=== PATIENT | male | born 1975 | race Caucasian/White ===

== ENCOUNTER 2016-09-16 15:40 | Emergency (ER) | payer BC ==
[2016-09-16 18:59] LABS: Hematocrit 49 % (42-52); Hemoglobin 16.5 g/dl (14.0-18.0); Mean Corpuscular HGB Conc 34 g/dl (31-36); Mean Corpuscular Hemoglobin 29 pg (27-31); Mean Corpuscular Volume 85 fL (80-94); Mean Platelet Volume 9 um3 (7.4-10.4); Red Blood Count 5.74 10^6/ul (4.0-5.4); Red Cell Distribution Width 13 % (10.5-15); White Blood Count 9.5 10^3/ul (3.5-10.8)
[2016-09-16 19:15] LABS: Albumin 4.4 g/dL (3.2-5.2); BUN/Creatinine Ratio 13.5 (8-20); Calcium 9.2 mg/dL (8.6-10.3); EGFR African American 101.7 (>60); EGFR Non-African American 79.1 (>60); Globulin 3.2 g/dL (2-4); Total Bilirubin 0.4 mg/dL (0.2-1.0); Total Protein 7.6 g/dL (6.4-8.9)
--- NOTE | 2016-09-16 20:32 | ED ---
Liss Hoang Thomas, scribed for Kemar Bloom MD on 09/16/16 at 1933 . Abdominal Pain/Male - HPI Summary HPI Summary: Pt is a 41 y/o M presenting to the ED c/o "pressure" in his lower back. He denies pain in his lower back and only confirms a sensation of "pressure". Pt additionally c/o abd bloating. Denies N/V and abd pain. A month ago, the pt had Sx of abd pain and went to his PCP, who diagnosed him with diverticulitis and prescribed him Ciprofloxacin and Flagyl. His Sx improved and he felt better. He had no imaging at that time. Two weeks ago, the pt noticed BRB when wiping and hematuria as well. He was diagnosed with hemorrhoids and prescribed a cream. Three days ago, the pt went to a GI doc who is trying to schedule a colonoscopy but the first available appointment is in October. This AM the pt developed a "pressure" sensation in his lower back and has defecated 4-5 times today, the last instance with BRB, prompting an ED visit. PMHx: diverticulitis, hemorrhoids. - History of Current Complaint Chief Complaint: EDAbdPain Stated Complaint: LOWER BACK PAIN,BLOOD IN STOOL Time Seen by Provider: 09/16/16 19:16 Hx Obtained From: Patient Onset/Duration: Sudden Onset - this AM, Still Present Timing: Constant Pain Intensity: 0 Pain Scale Used: 0-10 Numeric - not a pain but a "pressure" Location: Other - lower back Character: Other: - "pressure" Aggravating Factor(s): Nothing Alleviating Factor(s): Nothing Associated Signs And Symptoms: Positive: Blood in Stool - BRB when wiping, Other - POS: hematuria, NEG: abd pain (in the ED, but had abd pain a month ago) . Negative: Back Pain, Nausea, Vomiting - Allergies/Home Medications Allergies/Adverse Reactions: Allergies Allergy/AdvReac Type Severity Reaction Status Date / Time No Known Allergies Allergy Verified 07/30/15 22:46 PMH/Surg Hx/FS Hx/Imm Hx Previously Healthy: No Respiratory History: Denies: Hx Chronic Obstructive Pulmonary Disease (COPD) GI History: Reports: Hx Diverticulosis, Other GI Disorders - POS: diverticulitis , hemorrhoids History: Denies: Hx Kidney Stones Sensory History: Denies: Hx Legally Blind EENT History: Denies: Hx Deafness - Surgical History Surgery Procedure, Year, and Place: wisdom teeth; cholecystectomy Infectious Disease History: No Infectious Disease History: Reports: Hx Shingles - 2009 Denies: Hx Clostridium Difficile, Hx Hepatitis, Hx Human Immunodeficiency Virus (HIV), Hx of Known/Suspected MRSA, Hx Tuberculosis, Hx Known/Suspected VRE , Hx Known/Suspected VRSA, History Other Infectious Disease, Traveled Outside the [place] in Last 30 Days - Family History Known Family History: Positive: Other - NEG: chronic GI disease - Social History Alcohol Use: Rare Hx Substance Use: No Substance Use Type: Reports: None Hx Tobacco Use: No Smoking Status (MU): Never Smoked Tobacco Review of Systems Constitutional: Negative Eyes: Negative ENT: Negative Cardiovascular: Negative Respiratory: Negative Positive: Other - POS: abd bloating, BRB when wiping. Negative: Abdominal Pain , Vomiting, Nausea Positive: hematuria - two weeks ago Positive: Other - POS: "pressure" sensation in lower back; NEG: pain in lower back Skin: Negative Neurological: Negative Psychological: Normal All Other Systems Reviewed And Are Negative: Yes Physical Exam Triage Information Reviewed: Yes Vital Signs On Initial Exam: Initial Vitals Temp Pulse Resp BP Pulse Ox 97.0 F 98 20 177/107 97 09/16/16 15:45 09/16/16 15:45 09/16/16 15:45 09/16/16 15:45 09/16/16 15:45 Vital Signs Reviewed: Yes Appearance: Positive: Well-Appearing, No Pain Distress Skin: Positive: Warm Head/Face: Positive: Normal Head/Face Inspection Eyes: Positive: SIMBA ENT: Positive: Hearing grossly normal Neck: Positive: Supple, Nontender Respiratory/Lung Sounds: Positive: Breath Sounds Present Cardiovascular: Positive: RRR Abdomen Description: Positive: Nontender, No Organomegaly, Soft Bowel Sounds: Positive: Present Musculoskeletal: Positive: Strength/ROM Intact Neurological: Positive: Alert, Oriented to Person Place, Time Psychiatric: Positive: Affect/Mood Appropriate Diagnostics - Vital Signs Vital Signs Temp Pulse Resp BP Pulse Ox 09/16/16 18:26 98.8 F 74 17 113/74 98 09/16/16 15:47 97.8 F 97 20 177/107 96 09/16/16 15:45 97.0 F 98 20 177/107 97 - Laboratory Lab Results: Lab Results 09/16/16 09/16/16 09/16/16 Range/Units 18:56 18:56 18:56 WBC 9.5 (3.5-10.8) 10^3/ul RBC 5.74 H (4.0-5.4) 10^6/ul Hgb 16.5 (14.0-18.0) g/dl Hct 49 (42-52) % MCV 85 (80-94) fL MCH 29 (27-31) pg MCHC 34 (31-36) g/dl RDW 13 (10.5-15) % Plt Count 262 (150-450) 10^3/ul MPV 9 (7.4-10.4) um3 Neut % (Auto) 55.1 (38-83) % Lymph % (Auto) 30.3 (25-47) % Wilson % (Auto) 10.5 H (1-9) % Eos % (Auto) 3.1 (0-6) % Baso % (Auto) 1.0 (0-2) % Absolute Neuts (auto) 5.2 (1.5-7.7) 10^3/ul Absolute Lymphs (auto) 2.9 (1.0-4.8) 10^3/ul Absolute Monos (auto) 1.0 H (0-0.8) 10^3/ul Absolute Eos (auto) 0.3 (0-0.6) 10^3/ul Absolute Basos (auto) 0.1 (0-0.2) 10^3/ul Absolute Nucleated RBC 0.01 10^3/ul Nucleated RBC % 0.1 INR (Anticoag Therapy) 0.92 (0.89-1.11) APTT 31.5 (26.0-36.3) seconds Sodium 136 (133-145) mmol/L Potassium 4.0 (3.5-5.0) mmol/L Chloride 102 (101-111) mmol/L Carbon Dioxide 29 (22-32) mmol/L Anion Gap 5 (2-11) mmol/L BUN 14 (6-24) mg/dL Creatinine 1.04 (0.67-1.17) mg/dL Est GFR ( Amer) 101.7 (>60) Est GFR (Non-Af Amer) 79.1 (>60) BUN/Creatinine Ratio 13.5 (8-20) Glucose 86 (70-100) mg/dL Calcium 9.2 (8.6-10.3) mg/dL Total Bilirubin 0.40 (0.2-1.0) mg/dL AST 23 (13-39) U/L ALT 45 (7-52) U/L Alkaline Phosphatase 94 (34-104) U/L Total Protein 7.6 (6.4-8.9) g/dL Albumin 4.4 (3.2-5.2) g/dL Globulin 3.2 (2-4) g/dL Albumin/Globulin Ratio 1.4 (1-3) Blood Type Antibody Screen 09/16/16 Range/Units 18:56 WBC (3.5-10.8) 10^3/ul RBC (4.0-5.4) 10^6/ul Hgb (14.0-18.0) g/dl Hct (42-52) % MCV (80-94) fL MCH (27-31) pg MCHC (31-36) g/dl RDW (10.5-15) % Plt Count (150-450) 10^3/ul MPV (7.4-10.4) um3 Neut % (Auto) (38-83) % Lymph % (Auto) (25-47) % Wilson % (Auto) (1-9) % Eos % (Auto) (0-6) % Baso % (Auto) (0-2) % Absolute Neuts (auto) (1.5-7.7) 10^3/ul Absolute Lymphs (auto) (1.0-4.8) 10^3/ul Absolute Monos (auto) (0-0.8) 10^3/ul Absolute Eos (auto) (0-0.6) 10^3/ul Absolute Basos (auto) (0-0.2) 10^3/ul Absolute Nucleated RBC 10^3/ul Nucleated RBC % INR (Anticoag Therapy) (0.89-1.11) APTT (26.0-36.3) seconds Sodium (133-145) mmol/L Potassium (3.5-5.0) mmol/L Chloride (101-111) mmol/L Carbon Dioxide (22-32) mmol/L Anion Gap (2-11) mmol/L BUN (6-24) mg/dL Creatinine (0.67-1.17) mg/dL Est GFR ( Amer) (>60) Est GFR (Non-Af Amer) (>60) BUN/Creatinine Ratio (8-20) Glucose (70-100) mg/dL Calcium (8.6-10.3) mg/dL Total Bilirubin (0.2-1.0) mg/dL AST (13-39) U/L ALT (7-52) U/L Alkaline Phosphatase (34-104) U/L Total Protein (6.4-8.9) g/dL Albumin (3.2-5.2) g/dL Globulin (2-4) g/dL Albumin/Globulin Ratio (1-3) Blood Type O Positive Antibody Screen Pending Result Diagrams: 09/16/16 18:56 09/16/16 18:56 Lab Statement: Any lab studies that have been ordered have been reviewed, and results considered in the medical decision making process. - CT CT Abd/Pel CT Interpretation: No Acute Changes - 1. Hepatic steatosis. 2. Post cholecystectomy. 3. Normal appendix documented. No pathologic process of the alimentary tract evident. 4. Negative for obstructive uropathy. 5. 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 Associated moderately severe bilateral L5-S1 foraminal stenosis. No suspicious focal osseous lesions evident. CT Interpretation Completed By: Radiologist Re-Evaluation - Re-Evaluation First Eval Re-Evaluation Time: 22:21 Change: Improved - results d/w pt Abdominal Pain Fem Course/Dx - Diagnoses Provider Diagnoses: Abdominal pain Discharge - Discharge Plan Condition: Improved Disposition: HOME Patient Education Materials: Abdominal Pain (ED) Referrals: [facility] [place] PHYSICIAN REFERRAL [Outside] - 3 Days The documentation as recorded by the Liss hays Thomas accurately reflects the service I personally performed and the decisions made by , Kemar Bloom MD.
[2016-09-16] MEDS ORDERED: Iohexol 300* (CONTRAST) 10 ML SDV IV ONE (20:33)
--- NOTE | 2016-09-16 22:04 | RAD ---
INDICATION: Lumbar back pain and pressure. RIGHT red melena. Hemorrhoid. COMPARISON: No relevant prior exams available on the [facility] for comparison. TECHNIQUE: Multidetector CT images were obtained from the lung bases to the ischial tuberosities with 133 mL Omnipaque 300 IV contrast.. Oral contrast administered. REPORT: The visualized inferior thorax is remarkable for minimal dependent atelectasis. Decreased density of the liver consistent with fatty infiltration. No focal hepatic lesions or biliary dilatation. Post cholecystectomy. Unremarkable pancreas and spleen. Small splenule adjacent to the caudal hilum of the spleen. Negative for CT abnormality of the upper GI, small bowel, medially and inferiorly extending appendix, or colon. Negative for ascites, free air, or hernias. Normal adrenal glands. Unremarkable kidneys with symmetric nephrograms and pyelograms. Unremarkable nondilated ureters and distended urinary bladder. Unremarkable visualized male urogenital structures. Negative for lymphadenopathy. Normal diameter abdominal aorta and iliac arteries. Physiologic distention of the IVC. 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 Associated moderately severe bilateral L5-S1 foraminal stenosis. No suspicious focal osseous lesions evident. IMPRESSION: 1. Hepatic steatosis. 2. Post cholecystectomy. 3. Normal appendix documented. No pathologic process of the alimentary tract evident. 4. Negative for obstructive uropathy. 5. 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 Associated moderately severe bilateral L5-S1 foraminal stenosis. No suspicious focal osseous lesions evident.
[2016-09-16 22:33] VITALS: BP 123/70
== END 2016-09-16 22:43 | disposition home or self-care (01) ==
LOC: ED 15:40
DX: R10.9 Unspecified abdominal pain (principal); M54.5 Low back pain; R31.9 Hematuria, unspecified; K76.0 Fatty (change of) liver, not elsewhere classified; Z90.49 Acquired absence of other specified parts of digestive tract; M43.07 Spondylolysis, lumbosacral region
CPT/HCPCS: 36415; 74177; 80053; 85025; 85610; 85730; 86850; 86900; 86901; 99282; Q9967

== ENCOUNTER 2017-07-18 07:24 | Emergency (ER) | payer BC ==
[2017-07-18 07:35] VITALS: BP 136/92
--- NOTE | 2017-07-18 07:59 | UC ---
UC General HPI - HPI Summary HPI Summary: PATIENT COMPLAINS OF 5 DAYS OF INTERMITTENT PARESTHESIAS IN HIS UPPER AND LOWER EXTREMITIES BUT MOSTLY IN HIS LEFT ARM THAT STARTED MIDFLIGHT WHILE HE WAS TRAVELING FROM [place]. HE INITIALLY THOUGHT IT WAS BECAUSE HE WAS SITTING IN AN AWKWARD WAY BUT THE SYMPTOMS HAVE BEEN PERSISTENT ALBEIT INTERMITTENT. SYMPTOMS OCCUR AT RANDOM LASTING SECONDS TO MINUTES. HE ALSO FEELS A LITTLE BIT "FOGGY" IN THE HEAD. HE IS HAVING SIGNIFICANT ANXIETY ABOUT THIS. HE HAS SOME OCCASIONAL CHEST TIGHTNESS BUT DENIES ANY ACTUAL PAIN. NO SHORTNESS OF BREATH, NAUSEA, SWEATS. - History of Current Complaint Chief Complaint: UCUpperExtremity Stated Complaint: TINGLING OF ARMS Time Seen by Provider: 07/18/17 07:38 Hx Obtained From: Patient Onset/Duration: Sudden Onset, Lasting Days Onset Severity: Moderate Current Severity: Moderate Pain Intensity: 0 - Allergy/Home Medications Allergies/Adverse Reactions: Allergies Allergy/AdvReac Type Severity Reaction Status Date / Time No Known Allergies Allergy Verified 07/18/17 07:35 Home Medications: Home Medications NK [No Home Medications Reported] 07/18/17 [History Confirmed 07/18/17] PMH/Surg Hx/FS Hx/Imm Hx Previously Healthy: Yes - Surgical History Surgical History: Yes Surgery Procedure, Year, and Place: wisdom teeth; cholecystectomy - Family History Known Family History: Positive: Cardiac Disease, Other - NEG: chronic GI disease - Social History Alcohol Use: Occasionally Substance Use Type: None Smoking Status (MU): Never Smoked Tobacco Review of Systems Constitutional: Negative Skin: Negative Respiratory: Negative Cardiovascular: Other - INTERMITTENT CHEST TIGHTNESS Gastrointestinal: Negative Neurological: Paresthesia Psychological: Anxious All Other Systems Reviewed And Are Negative: Yes Physical Exam Triage Information Reviewed: Yes Appearance: Well-Appearing Vital Signs: Initial Vital Signs Temp 97.9 F 07/18/17 07:26 Pulse 104 07/18/17 07:26 Resp 18 07/18/17 07:26 BP 136/92 07/18/17 07:26 Pulse Ox 97 07/18/17 07:26 Eyes: Positive: Conjunctiva Clear ENT: Positive: Hearing grossly normal, Pharynx normal, TMs normal Neck: Positive: Supple, Nontender, No Lymphadenopathy Respiratory Exam: Normal Cardiovascular Exam: Normal Abdomen Description: Positive: Soft Musculoskeletal: Positive: No Edema Neurological: Positive: Alert, Other: - CN II-XII GROSSLY INTACT BILATERALLY. NEG PRONATOR DRIFT. FINGER TO NOSE INTACT BILATERALLY. HEEL TO DANIEL INTACT BILATERALLY. RAPID ALTERNATING MVMTS INTACT. 5/5 STRENGTH Psychological: Positive: Age Appropriate Behavior Skin: Negative: rashes Diagnostics - EKG Cardiac Rate: NL - 93bpm Cardiac Rhythm: Sinus: Normal Ectopy: None ST Segment: Normal Course/Dx - Differential Dx - Multi-Symptom Provider Diagnoses: PARESTHESIAS - Physician Notifications Discussed Patient Care With: ADÁN - CHARGE NURSE - [place] [facility] [place] [facility] Time Discussed With Above Provider: 08:00 Discharge - Sign-Out/Discharge Documenting (check all that apply): Discharge/Admit/Transfer - Discharge Plan Condition: Stable Disposition: HOME Patient Education Materials: Paresthesia (ED) Referrals: Tan Cortez MD [Primary Care Provider] - If Needed Additional Instructions: UNCLEAR ETIOLOGY OF YOUR SYMPTOMS BUT GIVEN THE PERSISTENT NATURE OF THE PARESTHESIAS AND IN LIGHT OF YOUR RECENT TRAVEL I FEEL A FURTHER WORK-UP IS WARRANTED. GO DIRECTLY TO THE [facility] FROM HERE FOR FURTHER EVALUATION. - Billing Disposition and Condition Condition: STABLE Disposition: HOME
== END 2017-07-18 08:08 | disposition home or self-care (01) ==
LOC: UCEAST 07:24
DX: R20.2 Paresthesia of skin (principal); R07.89 Other chest pain; F41.9 Anxiety disorder, unspecified
CPT/HCPCS: 93005; 99212; G0463

== ENCOUNTER 2017-07-18 08:24 | Emergency (ER) | payer BC ==
[2017-07-18] MEDS ORDERED: NS 0.9% 1000 ML* 1,000 ML IV ONE (08:46)
[2017-07-18] MEDS ORDERED: Aspirin 81 mg CHEW TAB* 81 MG TAB.CHEW PO ONE (08:54)
[2017-07-18] MEDS ORDERED: Famotidine TAB* 20 MG PO ONE (08:54)
[2017-07-18 09:17] LABS: Hematocrit 46 % (42-52); Hemoglobin 15.9 g/dl (14.0-18.0); Mean Corpuscular HGB Conc 34 g/dl (31-36); Mean Corpuscular Hemoglobin 29 pg (27-31); Mean Corpuscular Volume 84 fL (80-94); Mean Platelet Volume 8.4 um3 (7.4-10.4); Platelet Count 227 10^3/ul (150-450); Red Blood Count 5.49 10^6/ul (4.0-5.4); Red Cell Distribution Width 14 % (10.5-15); White Blood Count 7.2 10^3/ul (3.5-10.8)
[2017-07-18 09:20] LABS: ABS Basophils 0 10^3/ul (0-0.2); ABS Eosinophils 0.2 10^3/ul (0-0.6); ABS Lymphocytes 1.5 10^3/ul (1.0-4.8); ABS Monocytes 0.5 10^3/ul (0-0.8); ABS Neutrophils 4.8 10^3/ul (1.5-7.7); ABS Nucleated RBC 0 10^3/ul; Eosinophil % 2.5 % (0-6); Lymphocyte % 21.9 % (25-47); Nucleated Red Blood Cells % 0
[2017-07-18 09:31] LABS: EGFR Non-African American 86.3 (>60)
--- NOTE | 2017-07-18 09:41 | RAD ---
Indication: Chest pain. Comparison: September 16, [address] Technique: Upright AP 0921 hours Report: Clear lungs and pleural spaces. Negative for pneumothorax. The heart, pulmonary vasculature, and mediastinal contours are unremarkable. Unremarkable osseous structures and soft tissue contours. IMPRESSION: No evidence for acute intrathoracic disease.
[2017-07-18 10:38] VITALS: BP 125/89
--- NOTE | 2017-07-18 10:46 | ED ---
Fernando Hoang Stephanie, scribed for Nguyễn Wu MD on 07/18/17 at 0902 . Complex/Multi-Sys Presentation - HPI Summary HPI Summary: The pt is a 42 y/o M presenting to the ED with c/o intermittent tingling in UE and LE bilaterally since 07/16/17. The pt recently traveled from [place] and [facility]. He states he recently felt hazy and possibly dehydrated. Symptoms include sore throat, sleep disturbances and L anterior chest tightness that the pt thinks may be due to anxiety. The pt denies SOB, MANNING, cough, rhinorrhea and LE edema. The pt went to [facility] prior to coming to ED. - History Of Current Complaint Chief Complaint: EDGeneral Time Seen by Provider: 07/18/17 08:48 Hx Obtained From: Patient Onset/Duration: Gradual Onset, Lasting Days - 5, Still Present Timing: Intermittent, Lasting: Severity Currently: Mild Associated Signs And Symptoms: Positive: Chest Pain - tightness. Negative: SOB , Edema - Allergies/Home Medications Allergies/Adverse Reactions: Allergies Allergy/AdvReac Type Severity Reaction Status Date / Time No Known Allergies Allergy Verified 07/18/17 07:35 PMH/Surg Hx/FS Hx/Imm Hx Respiratory History: Denies: Hx Chronic Obstructive Pulmonary Disease (COPD) GI History: Reports: Hx Diverticulosis, Other GI Disorders - POS: diverticulitis , hemorrhoids History: Denies: Hx Kidney Stones Sensory History: Denies: Hx Legally Blind, Hx Deafness Opthamlomology History: Denies: Hx Legally Blind - Surgical History Surgery Procedure, Year, and Place: wisdom teeth; cholecystectomy Infectious Disease History: No Infectious Disease History: Reports: Hx Shingles - 2009, Traveled Outside the in Last 30 Days - [facility] [place] Denies: Hx Clostridium Difficile, Hx Hepatitis, Hx Human Immunodeficiency Virus (HIV), Hx of Known/Suspected MRSA, Hx Tuberculosis, Hx Known/Suspected VRE , Hx Known/Suspected VRSA, History Other Infectious Disease - Family History Known Family History: Positive: Cardiac Disease, Other - thyroid disease, NEG: chronic GI disease - Social History Occupation: Employed Full-time Lives: With Family Alcohol Use: Occasionally Hx Substance Use: No Substance Use Type: Reports: None Hx Tobacco Use: No Smoking Status (MU): Never Smoked Tobacco Have You Smoked in the Last Year: No Review of Systems Positive: Other - sleep disturbances. Negative: Fever Positive: Sore Throat. Negative: Nasal Discharge Positive: Chest Pain - L anterior chest tightness Negative: Shortness Of Breath, Cough Negative: Edema - LE Positive: Paresthesia - UE and LE bilaterally. Negative: Headache All Other Systems Reviewed And Are Negative: Yes Physical Exam - Summary Physical Exam Summary: Appearance: Well appearing, no pain distress Skin: warm, dry, reflects adequate perfusion Head/face: normal Eyes: EOMI, SIMBA ENT: normal Neck: supple, non-tender Respiratory: CTA, breath sounds present Cardiovascular: RRR, pulses symmetrical Abdomen: non-tender, soft Bowel Sounds: present Musculoskeletal: normal, strength/ROM intact Neuro: normal, sensory motor intact, A&Ox3, cranial nerves intact HIH: 0 Triage Information Reviewed: Yes Vital Signs On Initial Exam: Initial Vitals Temp Pulse Resp BP Pulse Ox 98.1 F 101 16 149/98 98 07/18/17 08:28 07/18/17 08:28 07/18/17 08:28 07/18/17 08:28 07/18/17 08:28 Vital Signs Reviewed: Yes Diagnostics - Vital Signs Vital Signs Temp Pulse Resp BP Pulse Ox 07/18/17 08:50 94 129/93 97 07/18/17 08:49 94 95 07/18/17 08:48 92 129/93 95 07/18/17 08:28 98.1 F 101 16 149/98 98 - Laboratory Lab Results: Lab Results 07/18/17 07/18/17 07/18/17 Range/Units 08:58 08:58 08:58 WBC 7.2 (3.5-10.8) 10^3/ul RBC 5.49 H (4.0-5.4) 10^6/ul Hgb 15.9 (14.0-18.0) g/dl Hct 46 (42-52) % MCV 84 (80-94) fL MCH 29 (27-31) pg MCHC 34 (31-36) g/dl RDW 14 (10.5-15) % Plt Count 227 (150-450) 10^3/ul MPV 8.4 (7.4-10.4) um3 Neut % (Auto) 68.2 (38-83) % Lymph % (Auto) 21.9 L (25-47) % Tillman % (Auto) 7.0 (0-7) % Eos % (Auto) 2.5 (0-6) % Baso % (Auto) 0.4 (0-2) % Absolute Neuts (auto) 4.8 (1.5-7.7) 10^3/ul Absolute Lymphs (auto) 1.5 (1.0-4.8) 10^3/ul Absolute Monos (auto) 0.5 (0-0.8) 10^3/ul Absolute Eos (auto) 0.2 (0-0.6) 10^3/ul Absolute Basos (auto) 0 (0-0.2) 10^3/ul Absolute Nucleated RBC 0 10^3/ul Nucleated RBC % 0 Sodium 137 L (139-145) mmol/L Potassium 4.1 (3.5-5.0) mmol/L Chloride 103 (101-111) mmol/L Carbon Dioxide 28 (22-32) mmol/L Anion Gap 6 (2-11) mmol/L BUN 11 (6-24) mg/dL Creatinine 0.96 (0.67-1.17) mg/dL Est GFR ( Amer) 111.0 (>60) Est GFR (Non-Af Amer) 86.3 (>60) BUN/Creatinine Ratio 11.5 (8-20) Glucose 154 H (70-100) mg/dL Lactic Acid 1.3 (0.5-2.0) mmol/L Calcium 9.1 (8.6-10.3) mg/dL Total Bilirubin 0.30 (0.2-1.0) mg/dL AST 33 (13-39) U/L ALT 71 H (7-52) U/L Alkaline Phosphatase 106 H (34-104) U/L Troponin I 0.00 (<0.04) ng/mL Total Protein 7.4 (6.4-8.9) g/dL Albumin 4.3 (3.2-5.2) g/dL Globulin 3.1 (2-4) g/dL Albumin/Globulin Ratio 1.4 (1-3) TSH 3.31 (0.34-5.60) mcIU/mL Thyroxine (T4) 5.32 L (6.09-12.23) mcg/mL Result Diagrams: 07/18/17 08:58 07/18/17 08:58 Lab Statement: Any lab studies that have been ordered have been reviewed, and results considered in the medical decision making process. - Radiology CXR Xray Interpretation: No Acute Changes Radiology Interpretation Completed By: Radiologist - No evidence for acute intrathoracic disease. ED physician has reviewed this report. - EKG 07:57 Cardiac Rate: NL EKG Rhythm: Sinus Rhythm - [address] Segment: Normal EKG Interpretation: Nml axis 09:37 Cardiac Rate: NL EKG Rhythm: Sinus Rhythm - [address] Segment: Normal EKG Interpretation: Nml axis intervals Re-Evaluation - Re-Evaluation First Eval Re-Evaluation Time: 10:23 Change: Improved - The pt's numbness has resolved and he is feeling improved after IV fluids. Complex Multi-Symp Course/Dx Course Of Treatment: Patient with bilateral upper extremity and lower extremity tingling/paresthesia. Also a little bit of subxiphoid tightness today. He is feeling very anxious. He just returned from flight from [place]. No shortness of breath or leg swelling. Troponin 0. Hydrated here with resolution of symptoms. Also given a dose of Pepcid and no longer having the tightness. EKG 2 is negative. Treat symptomatically. Follow-up primary care physician. - Diagnoses Differential Diagnoses/HQI/PQRI: Cardiac Ischemia, Metabolic Abnormality, Other - Dyspepsia/GI disease, dehydration, DVT PE Provider Diagnoses: Paresthesia, Dehydration, Anxiety Discharge - Sign-Out/Discharge Documenting (check all that apply): Discharge/Admit/Transfer - discharge - Discharge Plan Condition: Improved Disposition: HOME Prescriptions: Famotidine TAB* [Pepcid 20 MG TAB*] 20 mg PO BID #20 tab Patient Education Materials: Paresthesia (ED) Referrals: Tan Cortez MD [Primary Care Provider] - Additional Instructions: Stay well-hydrated. Drink plenty of fluids. Return if worse, chest pain, difficulty breathing, new symptoms or other concerns as discussed. - Billing Disposition and Condition Condition: IMPROVED Disposition: HOME The documentation as recorded by the Fernando hays Stephanie accurately reflects the service I personally performed and the decisions made by , Nguyễn Wu MD.
== END 2017-07-18 10:37 | disposition home or self-care (01) ==
LOC: ED 08:24
DX: R20.2 Paresthesia of skin (principal); E86.0 Dehydration; R07.9 Chest pain, unspecified; J02.9 Acute pharyngitis, unspecified; F41.9 Anxiety disorder, unspecified
CPT/HCPCS: 36415; 71045; 80053; 83605; 84436; 84443; 84484; 85025; 93005; 96360; 99283; A9270-GY

== ENCOUNTER 2018-04-28 10:03 | Emergency (ER) | payer BC, OTHER ==
[2018-04-28 10:23] VITALS: BP 138/93
--- NOTE | 2018-04-28 11:06 | UC ---
Respiratory Complaint HPI - HPI Summary HPI Summary: Patient presents to urgent care for evaluation of intermittent chest pressure. Patient states since Monday he's had these episodes of heavy squeezing in his substernal area. No radiation. No nausea vomiting. No diaphoresis. No short of breath. Patient states he also intermittent a cough and developed a sharp pain to the right sternal border that is different than the pressure. Patient states sometimes he feels tingling in both arms. Patient states this is not related to the chest discomfort. Patient has not taken anything for pain. Patient states he woke up last night and felt it. Patient states he has been thinking a lot about it and wanted to get it checked out. Patient does not have high blood pressure, high cholesterol, or diabetes. Patient's father had an HI at age 60. Patient's sister has to be PW. Patient does not smoke cigarettes. Patient has never had a cardiac stress test. Patient states he does not routinely exercise. Patient does not that recent travel. No history of blood clots. Patient's medications reviewed this visit. No current pain - History of Current Complaint Chief Complaint: UCRespiratory Stated Complaint: COUGH Time Seen by Provider: 04/28/18 11:04 Hx Obtained From: Patient Pain Intensity: 0 - Allergies/Home Medications Allergies/Adverse Reactions: Allergies Allergy/AdvReac Type Severity Reaction Status Date / Time No Known Allergies Allergy Verified 04/28/18 11:51 PMH/Surg Hx/FS Hx/Imm Hx Previously Healthy: Yes - Surgical History Surgical History: Yes Surgery Procedure, Year, and Place: wisdom teeth; cholecystectomy - Family History Known Family History: Positive: None, Cardiac Disease, Other - thyroid disease, NEG: chronic GI disease - Social History Alcohol Use: Occasionally Substance Use Type: None Smoking Status (MU): Never Smoked Tobacco Have You Smoked in the Last Year: No Review of Systems All Other Systems Reviewed And Are Negative: Yes Constitutional: Positive: Negative Skin: Positive: Negative Eyes: Positive: Negative ENT: Positive: Negative Respiratory: Positive: Cough Cardiovascular: Positive: Chest Pain Gastrointestinal: Positive: Negative Genitourinary: Positive: Negative Physical Exam - Summary Physical Exam Summary: Vital Signs Reviewed: Yes A+Ox3, no distress Eyes: Conjunctiva Clear, SIMBA. EOM intact and full ENT: Hearing grossly normal TM x 2 clear, mmoist, uvula midline, no exudate, no erythema Neck: Positive: Supple Respiratory: Positive: No respiratory distress, No accessory muscle use + CTA throughout no w/r Cardiovascular: RRR nl s1, s2 no m/r CBT <2 sec, no bruits, no reproducible abd soft + BS nt/nd no guarding, no distension Musculoskeletal Exam: REYES x 4 without difficulty Strength Intact, ROM Intact Neurological: Positive: Alert, + sensation throughout Psychological: Positive: Normal Response To Family Skin: Positive: no rash, no ecchymosis Triage Information Reviewed: Yes Vital Signs: Initial Vital Signs Temp 97.4 F 04/28/18 10:19 Pulse 92 04/28/18 10:19 Resp 12 04/28/18 10:19 BP 138/93 04/28/18 10:19 Pulse Ox 100 04/28/18 10:19 UC Diagnostic Evaluation - Laboratory O2 Sat by Pulse Oximetry: 100 - EKG Cardiac Rate: NL Cardiac Rhythm: Sinus: Normal ST Segment: Normal EKG Comparison: No Significant Change Respiratory Course/Dx - Course Course Of Treatment: Pt presents with intermittent episodes of chest pressure since Monday. No radiation. no SOB, no diaphoresis. Pt cardiac history. VSS. Non reproducible. Non concerning exam. EKG without acute finding. d/w pt at length. Pt with little risk factors for cardiac, but describes as pressure. Will discharge with recommendation to ED. ASA prior to discharge. d/w Dr. Lal in ED -aware pt coming - Differential Dx/Diagnosis Provider Diagnosis: Chest tightness or pressure Discharge - Sign-Out/Discharge Documenting (check all that apply): Patient Departure All imaging exams completed and their final reports reviewed: No Studies - Discharge Plan Condition: Stable Disposition: HOME-RECOMMEND TO ED Patient Education Materials: Chest Pain (ED) Referrals: Tan Cortez MD [Primary Care Provider] - Additional Instructions: The doctor that evaluated you today thinks that you need additional testing that can be completed the emergency department. It is recommended that you go directly to emergency department for further evaluation. This evaluation may include blood work or imaging. This testing will be directed and decided by the provider that evaluate you at the emergency department. If pain becomes worse, you feel lightheaded, you have uncontrolled vomiting, or you have any other concerns while you are being driven to emergency department as recommended to pullover and contact 911. - Billing Disposition and Condition Condition: STABLE Disposition: Home-Recommend to ED
[2018-04-29] MEDS ORDERED: Aspirin 81 mg CHEW TAB* 81 MG TAB.CHEW PO ONE (11:21)
== END 2018-04-28 11:30 | disposition home health service (06) ==
LOC: UCEAST 10:03
DX: R07.89 Other chest pain (principal); R20.2 Paresthesia of skin
CPT/HCPCS: 93005; 99212; A9270-GY; G0463

== ENCOUNTER 2018-04-28 11:45 | Emergency (ER) | payer OTHER ==
--- NOTE | 2018-04-28 12:04 | ED ---
HPI Chest Pain - HPI Summary HPI Summary: Patient is a 42 y/o M presenting to ED with complaints of intermittent mid sternal chest pain for the past six days. He states that he will have chest pain "momentarily" followed by episodes of what he describes as chest pressure/ discomfort for around 30 minutes. Nothing specific is noted to produce these episodes. He states that he had an episode of chest pain last night which woke him up, also stating that he was dizzy when he woke up. He reports some tingling of BUE with episodes of chest pain. He denies radiation of pain, N/V, BLE edema, and palpitations. Patient notes that he was in [place] in February, states flight was around 5 hours. He states that he has "labored" breathing with episodes, but denies SOB. No Hx of HTN, HLD, diabetes. Patient takes no regular medications. FMHx of [place], father, at 60. sister had WPW. No smoking cigarettes, rare alc usage, no drug usage. On triage, pain is rated 1/10, nothing is noted to aggravate/alleviate Sx. Home medications and allergies are reviewed. - History of Current Complaint Chief Complaint: EDChestPainROMI Time Seen by Provider: 04/28/18 11:53 Hx Obtained From: Patient Onset/Duration: Started Days Ago - six, Still Present Timing: Intermittent, Lasting Minutes Current Severity: Mild - 1/10 Pain Intensity: 1 Pain Scale Used: 0-10 Numeric - 1/10 Chest Pain Location: Mid Sternal Chest Pain Radiates: No Character: Pressure/Squeezing, Other: - discomfort Aggravating Factor(s): Nothing Alleviating Factor(s): Nothing Associated Signs and Symptoms: Positive: Chest Pain, Tingling - BUE, Dizziness. Negative: Shortness of Breath, Swelling, Diaphoresis, Nausea, Palpitations, Calf Pain/Swelling, Vomiting - Allergy/Home Medications Allergies/Adverse Reactions: Allergies Allergy/AdvReac Type Severity Reaction Status Date / Time No Known Allergies Allergy Verified 04/28/18 11:51 Home Medications: Home Medications NK [No Home Medications Reported] 04/28/18 [History Confirmed 04/28/18] PMH/Surg Hx/FS Hx/Imm Hx Endocrine/Hematology History: Denies: Hx Diabetes Cardiovascular History: Denies: Hx Hypercholesterolemia, Hx Hypertension Respiratory History: Denies: Hx Chronic Obstructive Pulmonary Disease (COPD) GI History: Reports: Hx Diverticulosis, Other GI Disorders - POS: diverticulitis , hemorrhoids History: Denies: Hx Kidney Stones Sensory History: Denies: Hx Legally Blind, Hx Deafness Opthamlomology History: Denies: Hx Legally Blind - Surgical History Surgery Procedure, Year, and Place: wisdom teeth; cholecystectomy Infectious Disease History: No Infectious Disease History: Reports: Hx Shingles - 2009 Denies: Hx Clostridium Difficile, Hx Hepatitis, Hx Human Immunodeficiency Virus (HIV), Hx of Known/Suspected MRSA, Hx Tuberculosis, Hx Known/Suspected VRE , Hx Known/Suspected VRSA, History Other Infectious Disease, Traveled Outside the [place] in Last 30 Days - Family History Known Family History: Positive: Cardiac Disease - [place], father, age 60; sister WPW , Other - thyroid disease, NEG: chronic GI disease - Social History Alcohol Use: Rare Hx Substance Use: No Substance Use Type: Reports: None Hx Tobacco Use: No Smoking Status (MU): Never Smoked Tobacco Have You Smoked in the Last Year: No Review of Systems Negative: Skin Diaphoresis Positive: Chest Pain. Negative: Palpitations Respiratory: Other - POSITIVE - "LABORED" BREATHING Negative: Shortness Of Breath Negative: Vomiting, Nausea Negative: Edema - BLE Neurological: Other - POSITIVE - DIZZINESS, TINGLING OF BUE All Other Systems Reviewed And Are Negative: Yes Physical Exam - Summary Physical Exam Summary: VITAL SIGNS: Reviewed. GENERAL: Patient is a well-developed and nourished male who is lying comfortable in the stretcher. Patient is not in any acute respiratory distress. HEAD AND FACE: No signs of trauma. No ecchymosis, hematomas or skull depressions. No sinus tenderness. EYES: PERRLA, EOMI x 2, No injected conjunctiva, no nystagmus. EARS: Hearing grossly intact. Ear canals and tympanic membranes are within normal limits. MOUTH: Oropharynx within normal limits. NECK: Supple, trachea is midline, no adenopathy, no JVD, no carotid bruit, no c- spine tenderness, neck with full ROM. CHEST: Symmetric, no tenderness at palpation LUNGS: Clear to auscultation bilaterally. No wheezing or crackles. CVS: Regular rate and rhythm, S1 and S2 present, no murmurs or gallops appreciated. ABDOMEN: Soft, non-tender. No signs of distention. No rebound no guarding, and no masses palpated. Bowel sounds are normal. EXTREMITIES: FROM in all major joints, no edema, no cyanosis or clubbing. NEURO: Alert and oriented x 3. No acute neurological deficits. Speech is normal and follows commands. SKIN: Dry and warm Triage Information Reviewed: Yes Vital Signs On Initial Exam: Initial Vitals Temp Pulse Resp BP Pulse Ox 97.0 F 87 18 150/100 99 04/28/18 11:48 04/28/18 11:48 04/28/18 11:48 04/28/18 11:48 04/28/18 11:48 Vital Signs Reviewed: Yes Diagnostics - Vital Signs Vital Signs Temp Pulse Resp BP Pulse Ox 04/28/18 11:48 97.0 F 87 18 150/100 99 - Laboratory Result Diagrams: 04/28/18 12:07 04/28/18 12:07 Lab Statement: Any lab studies that have been ordered have been reviewed, and results considered in the medical decision making process. - Radiology CXR Radiology Interpretation Completed By: Radiologist Summary of Radiographic Findings: IMPRESSION: NO EVIDENCE FOR ACUTE DISEASE. THIS REPORT WAS REVIEWED BY ED PHYSICIAN. - EKG 1213 Cardiac Rate: NL - rate of 78 BPM EKG Rhythm: Sinus Rhythm EKG Comparison: No Significant Change - compared to 07/18/17 EKG Summary of EKG Findings: EKG showed sinus rhythm with rate of 78 BPM, no ST elevations, similar compared to 07/18/17 EKG. Re-Evaluation - Re-Evaluation First Eval Re-Evaluation Time: 15:27 Comment: I discussed all the findings and test results with the patient. Patient was instructed to return to the emergency room immediately if any of the symptoms return or worsens. Plan of care was discussed with the patient and understands and agrees. All questions were answered at patient satisfaction. There were no further complaints or concerns. Lung exam before discharge: CTA B/ L. Good air exchange. No wheezing or crackles heard. CVS: S1 and S2 present. No murmurs appreciated. Patient is alert and oriented x 3. Patient is hemodynamically stable. Patient will be discharged home with follow up PCP in the next 2-3 days Chest Pain Course/Dx - Course Assessment/Plan: Patient is a 42 y/o M presenting to ED with complaints of intermittent mid sternal chest pain for the past six days. He states that he will have chest pain "momentarily" followed by episodes of what he describes as chest pressure/discomfort for around 30 minutes. Nothing specific is noted to produce these episodes. He states that he had an episode of chest pain last night which woke him up, also stating that he was dizzy when he woke up. He reports some tingling of BUE with episodes of chest pain. He denies radiation of pain, N/V, BLE edema, and palpitations. Patient notes that he was in [place] in February, states flight was around 5 hours. He states that he has "labored" breathing with episodes, but denies SOB. No Hx of HTN, HLD, diabetes. Patient takes no regular medications. FMHx of [place], father, at 60. sister had WPW. No smoking cigarettes, rare alc usage, no drug usage. Test results without any significant abnormality, except for AST and ALT which is slightly elevated. 2 troponins 4 hours apart were negative. Chest x-ray impression: no acute pathology. Since the patient doesnt have any pain. I do not believe that the patient has an acute coronary syndrome, and no suspicion for PE. I discussed all the findings and test results with the patient. Patient was instructed to return to the emergency room immediately if any of the symptoms return or worsens. Plan of care was discussed with the patient and understands and agrees. All questions were answered at patient satisfaction. There were no further complaints or concerns. Lung exam before discharge: CTA B/L. Good air exchange. No wheezing or crackles heard. CVS: S1 and S2 present. No murmurs appreciated. Patient is alert and oriented x 3. Patient is hemodynamically stable. Patient will be discharged home with follow up PCP in the next 2-3 days - Chest Pain Differential Diagnosis/HQI/PQRI: Acute [place], ACS, Angina, CHF, Chest Wall, GI Disease, Lower Respiratory Infection - Diagnoses Provider Diagnoses: Atypical chest pain, Chest pain Discharge - Sign-Out/Discharge Documenting (check all that apply): Patient Departure - discharge Patient Received Moderate/Deep Sedation with Procedure: No - NO PROCEDURES DONE - Discharge Plan Condition: Stable Disposition: HOME Patient Education Materials: Chest Pain (ED) Referrals: Tan Cortez MD [Primary Care Provider] - 3 Days Additional Instructions: RETURN TO EMERGENCY DEPARTMENT WITH ANY NEW OR WORSENING SYMPTOMS. FOLLOW UP WITH PRIMARY CARE PHYSICIAN WITHIN THREE DAYS. - Billing Disposition and Condition Condition: STABLE Disposition: Home - Attestation Statements Document Initiated by Stephanie: Yes Documenting Scribe: KIMBERLY MOONEY Provider For Whom Stephanie is Documenting (Include Credential): YUSRA SHANKS MD Scriblong Attestation: KIMBERLY Hoang, scribed for YUSRA SHANKS MD on 04/29/18 at 1313. Scribe Documentation Reviewed: Yes Provider Attestation: The documentation as recorded by the KIMBERLY hays accurately reflects the service I personally performed and the decisions made by me, YUSRA SHANKS MD Status of Scribe Document: Viewed
[2018-04-28 12:21] LABS: ABS Basophils 0 10^3/ul (0-0.2); ABS Eosinophils 0.3 10^3/ul (0-0.6); ABS Lymphocytes 2.2 10^3/ul (1.0-4.8); ABS Monocytes 0.7 10^3/ul (0-0.8); ABS Neutrophils 4.5 10^3/ul (1.5-7.7); ABS Nucleated RBC 0 10^3/ul; Eosinophil % 3.7 %; Hematocrit 48 % (42-52); Hemoglobin 16.5 g/dl (14.0-18.0); Lymphocyte % 28.2 %; Mean Corpuscular HGB Conc 34 g/dl (31-36); Mean Corpuscular Hemoglobin 29 pg (27-31); Mean Corpuscular Volume 85 fL (80-94); Mean Platelet Volume 8.4 fL (7.4-10.4); Nucleated Red Blood Cells % 0.2; Platelet Count 272 10^3/ul (150-450); Red Blood Count 5.69 10^6/ul (4.00-5.40); Red Cell Distribution Width 13 % (10.5-15); White Blood Count 7.8 10^3/ul (3.5-10.8)
[2018-04-28 12:24] LABS: Urine Appearance Clear; Urine Bilirubin Negative (Negative); Urine Blood Negative (Negative); Urine Color Straw; Urine Glucose Negative (Negative); Urine Ketones Negative (Negative); Urine Nitrite Negative (Negative); Urine Protein Negative (Negative); Urine Specific Gravity 1.003 (1.010-1.030); Urine Urobilinogen Negative (Negative)
[2018-04-28 12:37] LABS: Albumin 4.9 g/dL (3.2-5.2); Albumin/Globulin Ratio 1.6 (1-3); BUN/Creatinine Ratio 8.3 (8-20); Calcium 9.3 mg/dL (8.6-10.3); EGFR African American 90.2 (>60); EGFR Non-African American 74.6 (>60); Globulin 3.1 g/dL (2-4); Magnesium 2.2 mg/dL (1.9-2.7); Potassium 4.1 mmol/L (3.5-5.0); Total Bilirubin 0.5 mg/dL (0.2-1.0)
[2018-04-28 12:42] LABS: CKMB ng/mL 0.9 ng/mL (0.6-6.3)
[2018-04-28 13:31] LABS: TSH (Thyroid Stimulating Horm) 4.63 mcIU/mL (0.34-5.60)
[2018-04-28] MEDS ORDERED: Ketorolac INJ* 30 MG/ML 1 ML VIAL IV PUSH ONE (14:47)
[2018-04-28 15:31] VITALS: BP 127/89
== END 2018-04-28 15:31 | disposition home or self-care (01) ==
LOC: ED 11:45
DX: R07.89 Other chest pain (principal); Z82.49 Family history of ischemic heart disease and other diseases of the circulatory system
CPT/HCPCS: 36415; 71045; 80053; 81003; 82550; 82553; 83605; 83735; 83880; 84443; 84484; 85025; 85379; 93005; 99283

== ENCOUNTER 2022-09-05 19:18 | Observation (INO) ==
[2022-09-05 19:52] LABS: ABS Eosinophils 0.3 10^3/uL (0.0-0.5); ABS Lymphocytes 2.6 10^3/uL (1.0-4.8); ABS Monocytes 0.7 10^3/uL (0.0-1.1); ABS Neutrophils 5.2 10^3/uL (1.5-7.6); ABS Nucleated RBC 0.01 10^3/ul; Eosinophil % 3.4 %; Hematocrit 44.7 % (38-53); Hemoglobin 15.3 g/dL (13.2-16.3); Lymphocyte % 29.2 %; Mean Corpuscular Hemoglobin 29.4 pg (27-33); Mean Corpuscular Hgb Conc 34.1 g/dL (31-36); Mean Corpuscular Volume 86.1 fL (80-97); Mean Platelet Volume 8.4 fL (7.5-11.2); Nucleated Red Blood Cells % 0.1 /100 WBC (0.0-0.4); Platelet Count 264 10^3/uL (150-450); Red Blood Count 5.19 10^6/uL (4.06-5.63); Red Cell Distribution Width 13.4 % (12-17); White Blood Count 8.8 10^3/uL (3.6-10.2)
[2022-09-05] MEDS ORDERED: Iodixanol (CONTRAST) 320 MG/ML 100 ML SDV IV ONE (19:59)
[2022-09-05 20:00] LABS: Activated Partial Thrombo Time 31.6 seconds (26.0-38.0); INR 1.05 (0.88-1.18)
[2022-09-05 20:09] LABS: ALT 35 U/L (7-52); AST 20 U/L (13-39); Albumin 4.3 g/dL (3.2-5.2); Albumin/Globulin Ratio 1.4 (1-3); Alkaline Phosphatase 114 U/L (35-149); Anion Gap 9 mmol/L (2-16); Blood Urea Nitrogen 12 mg/dL (6-24); CO2 Carbon Dioxide 28 mmol/L (22-32); Calcium 8.9 mg/dL (8.6-10.3); Chloride 102 mmol/L (101-111); Cholesterol 182 mg/dL; Creatinine, Serum 0.92 mg/dL (0.67-1.17); Glucose 170 mg/dL (70-100); HDL Cholesterol 36.3 mg/dL; LDL Cholesterol 104 mg/dL; Potassium 3.9 mmol/L (3.5-5.0); Sodium 139 mmol/L (135-145); Total Protein 7.3 g/dL (6.4-8.9); Triglycerides 210 mg/dL; eGFR CKD-EPI 103.9 (>60)
[2022-09-05 20:27] LABS: Alcohol, S < 13 mg/dL (<13)
[2022-09-05 22:43] LABS: Vitamin B12 245 pg/mL (180-914)
[2022-09-06] MEDS ORDERED: Cyanocobalamin INJ 1,000 MCG/ML VIAL 1 ML VIAL IM ONE (10:19)
[2022-09-06 15:01] VITALS: BP 123/74
== END 2022-09-06 17:40 | disposition home or self-care (01) ==
LOC: EDHOLD 19:18 → ED 19:18 → SUATTDRO 21:19 → MEDTELE 23:28
PROVIDERS: ADMIT Hospitalist; ATTEND Internal Medicine